=== PATIENT | male | born 2000 | race African-American/Black ===

== ENCOUNTER 2024-04-22 10:35 | Emergency (ER) | payer OTHER ==
[~2024-04-22] VITALS: Ht 175.3 cm; Wt 84.9 kg
[2024-04-22 14:00] VITALS: BP 136/91; TEMP 98.2; O2SAT 100
[2024-04-22] MEDS ORDERED: CEPH500C PO (14:52)
== END 2024-04-22 15:02 | disposition home or self-care (01) ==
LOC: M ED 10:35
DX: L60.0 Ingrowing nail (principal)

== ENCOUNTER 2025-04-21 17:22 | Emergency (ER) | payer OTHER ==
[~2025-04-21] VITALS: Ht 175.3 cm; Wt 79.0 kg
[~2025-04-21 17:22] MED LIST: CEPH500C PO
[2025-04-21 19:15] VITALS: TEMP 98.3
[2025-04-21 21:21] VITALS: BP 120/81; O2SAT 100
== END 2025-04-21 21:50 | disposition left against medical advice (07) ==
LOC: M ED 17:22
DX: Z53.21 Procedure and treatment not carried out due to patient leaving prior to being seen by health care provider (principal)